=== PATIENT | female | born 1990 | race Two or more races ===

== ENCOUNTER → 2025-01-10 | Day surgery (SDC) | payer MEDICAID ==
[~2025-01-10] VITALS: Ht 162.6 cm; Wt 49.9 kg
[~2025-01-10] MED LIST: DexAMETHasone SOD PHOS 10MG/1ML VIAL INJ ONE; HYDROmorphone HCL 2 MG/ML VL/or syr IV PRN; HYDROmorphone HCL 2 MG/ML VL/or syr ONE; IBUP100S11 GT; KETAMINE 50mg/ML 1ml syringe ONE; KETOROLAC TROMETH 30 MG/ML 1ML VIAL IV ONE; LIDOCAINE 1% INJ PF 5ML AMP ONE; METOCLOPRAMIDE HCL 5MG/ml INJ 2ml VIAL IV ONE; MIDAZOLAM HCL 2MG/2ML 2ml VIAL (1mg/ml) ONE; MORPHINE SULFATE 4 MG/ML SYR/VIAL IV PRN; MORPHINE SULFATE INJ 2 MG/ml SYRG IV PRN; MULT-1018 PO; ONDANSETRON HCL 4 MG/2 ML VIAL ONE; PROPOFOL 10 MG/ML 20 ML IV ONE; SODIUM CHLORIDE LOCK 10 ML ONE; WOUNGEL61 EX; fentaNYL CITRATE 100 MCG/2 ML VL ONE
[2025-01-10] MEDS: ceFAZolin 2 GM/D5W50ml 50 ML IV ONE (13:25)
[2025-01-10] MEDS: BUPIVACAINE HCL 50 ML ONE (13:55)
[2025-01-10 14:06] VITALS: PULSE 97; RESP 11; TEMP 98.7
[2025-01-10 16:15] VITALS: BP 120/63; PULSE 84; RESP 8; O2SAT 100
--- NOTE | 2025-01-10 17:31 | DVHOP ---
DATE OF SURGERY: 01/10/2025 PREOPERATIVE DIAGNOSIS: Left knee medial femoral condyle chondral injury. POSTOPERATIVE DIAGNOSIS: Left knee medial femoral condyle chondral injury with lateral meniscus tear. PROCEDURES PERFORMED: Left knee arthroscopy with partial lateral meniscectomy and chondroplasty of the medial femoral condyle with microfracture. ANESTHESIA: General. COMPLICATIONS: None. IMPLANTS USED: None. LONG TERM: YANA Maya INDICATION FOR PROCEDURE: The patient is a 34-year-old female who presented to the clinic with a history of knee injury. Clinical and radiological evaluation demonstrated chondral injury of the medial femoral condyle. Nonoperative and operative management options were discussed. Due to longstanding pain and failure of conservative management, surgery in the form of knee arthroscopy, chondroplasty, possible microfracture was discussed with her. Benefits, risks, and treatment alternatives were discussed. Specific complications of the surgery such as neurovascular injury, infection, arthrofibrosis, loss of limb or life were discussed. The patient decided to proceed with surgical option. PROCEDURE IN DETAIL: The patient was identified in the preoperative holding area and the surgical site was marked. Consent was verified. She was brought into the operating room and placed supine on the operating table. General anesthesia was administered. Intravenous antibiotics were given. The extremity was prepped and draped in the usual sterile manner. A timeout was called out to confirm the identify of the patient, the nature of surgery, the site of surgery, the availability ____. A standard anterolateral portal was established. A 30-degree scope was inserted. A standard anteromedial portal was established, a probe was inserted, and the findings are as follows: * Full-thickness chondral damage medial femoral condyle, approximately 7 mm in diameter. * Radial tear of the lateral meniscus in the white-white zone. * Intact ACL and PCL. * Intact articular cartilage other than mentioned above. * Intact patellofemoral joint with normal ____. Based on these findings, I decided to do a partial lateral meniscectomy. A shaver and a biter was used to clean up the inner one-third of the meniscus. 1-2 mm of the meniscus rim was trimmed. Good amount of residual meniscus tissue was noted. The medial femoral condyle cartilage damage was evaluated. This was approximately 7-8 mm in diameter. Chondral flap was noted. This was debrided. Next, a PowerPick shaver attachment was used to create four small holes. Microfracture was complete. Irrigation was given. The skin incisions were closed with 3-0 Monocryl. Steri-Strips applied. DISPOSITION: Good, the patient was extubated and taken to recovery room without any complications. PLAN: Remain toe-touch weightbearing. Follow up in 2 weeks. MD AMILCAR Khan/JENN/HASMUKH TID: [id number] RECEIPT: [id number]
== END | disposition home or self-care (01) ==
LOC: SUR 09:25
PROVIDERS: ATTEND Orthopaedic Surgery Sports Medicine
DX: S83.282A Other tear of lateral meniscus, current injury, left knee, initial encounter (principal); Z88.8 Allergy status to other drugs, medicaments and biological substances; Z98.890 Other specified postprocedural states; X58.XXXA Exposure to other specified factors, initial encounter; Y93.89 Activity, other specified; Y99.8 Other external cause status
CPT/HCPCS: 29879; 29881; J0690; J1100; J1171; J2250; J2405; J2704; J3010; J3490